=== PATIENT | female | born 1990 | race Caucasian/White ===

== ENCOUNTER 2016-10-07 16:35 | Inpatient (IN) | payer BC ==
[~2016-10-07] VITALS: Ht 175.3 cm; Wt 88.0 kg
--- NOTE | ~2016-10-07 | DS ---
Unit #: [id number] #: [id number] Patient: CARMELA HENDERSON [id number] [facility] [address] [place] [address] [id number] I MR#: [id number] NAME: CARMELA HENDERSON ROOM: [facility] Age: 25 Sex: F Admission Date: 10/07/2016 : 1990 Discharge Date: 10/12/2016 Attending Physician: Jamie Vasquez M.D. Primary Care Physician: Primary Care Physician No DISCHARGE SUMMARY IDENTIFYING DATA Ms. Henderson is a 25-year-old single white female, who is a resident of [place], [place], and was brought to the hospital by her mother on a voluntary basis. DISCHARGE DIAGNOSES Psychiatric: Bipolar disorder, most recent episode depressed, recurrent, moderate, without psychotic features. Medical: None. Stressors: Mild psychosocial stressors. HISTORY OF PRESENT ILLNESS Please see initial psychiatric evaluation for details. PAST PSYCHIATRIC HISTORY Please see initial psychiatric evaluation for details. PAST MEDICAL HISTORY Please see initial psychiatric evaluation for details. HOSPITAL COURSE The patient [facility] and was oriented to the hospital environment. Routine p.r.n. medications were initiated, and she was started back on her home medications and medications were adjusted and her Lamictal was maintained at 100 mg and Abilify and Celexa were increased and she was closely monitored. She was taking the medications regularly and was tolerating them fairly well and was able to show a decent and therapeutic response with improvement in depression and anxiety, and was denying any suicidal ideations, intent, or plan and as such, it was decided that she will be discharged home and will continue treatment on an outpatient basis. DISCHARGE MEDICATIONS Lamictal 100 mg a day for bipolar, Abilify 10 mg at bedtime for bipolar, Celexa 40 mg a day for depression. DISCHARGE CONDITION Stable. PROGNOSIS Fair. Dictated by... Unit #: [id number] #: [id number] Patient: CARMELA HENDERSON Jamie Vasquez M.D. IAA/modl TD: 10/12/2016 23:29 JOB #: [id number] DISCHARGE SUMMARY Page 1 of 1 X Jamie Vasquez MD DISCHARGE SUMMARY
--- NOTE | ~2016-10-07 | PN ---
Unit #: [id number] #: [id number] Patient: CARMELA HENDERSON [id number] [facility] [address] [place] [address] [id number] I MR#: [id number] NAME: CARMELA HENDERSON ROOM: P212 Age: 25 Sex: F Admission Date: 10/07/2016 : 1990 Attending Physician: Jamie Vasquez M.D. Admitting Physician: Jamie Vasquez M.D. Primary Care Physician: Primary Care Physician Nola MORAN PROGRESS NOTES DATE October 10, 2016 DISCUSSION Ms. Henderson is a 25-year-old white female, with mood disorder, who was seen today and chart was reviewed and the case was discussed with the staff. She has been anxious, withdrawn, depressed, and rather seclusive to herself. Meanwhile, she has been cooperative with the treatment recommendations and has been taking the medications and tolerating them fairly well with no reported side effects. MENTAL STATUS EXAMINATION Young white female, who was casually dressed with fair personal hygiene and appears to be in no acute distress or discomfort. The patient was awake and alert with impaired attention and concentration. Her mood was anxious with a congruent affect. The patient denies any suicidal or homicidal ideations. Her insight and judgment remain slightly impaired. TREATMENT PLAN 1. We will continue her on her current medications and treatment protocol, and will monitor her response to the medications, and make further adjustments as needed. 2. We will continue to followup. Dictated by... Loyda Decker/ben TD: 10/12/2016 10:55 JOB #: [id number] Unit #: [id number] #: [id number] Patient: CARMELA HENDERSON PROGRESS NOTES Page 1 of 1 X Jamie Vasquez MD PROGRESS NOTE
--- NOTE | ~2016-10-07 | PA ---
Unit #: [id number] #: [id number] Patient: CARMELA HENDERSON [id number] [facility] [address] [place] [address] [id number] I MR#: [id number] NAME: CARMELA HENDERSON ROOM: P201 Age: 25 Sex: F Admission Date: 10/07/2016 : 1990 Date of Assessment: 10/08/2016 Attending Physician: Jamie Vasquez M.D. Admitting Physician: Jamie Vasquez M.D. Primary Care Physician: Primary Care Physician No PSYCHIATRIC ASSESSMENT DATE OF SERVICE 10/08/2016. IDENTIFYING DATA Ms. Henderson is a 25-year-old single white female, who is a resident of [place], [place], and was brought to the hospital by her mother on a voluntary basis. CHIEF COMPLAINT "Suicidal ideations and substance abuse." HISTORY OF PRESENT ILLNESS Ms. Henderson is a 25-year-old white female, who was brought to the hospital and reported having suicidal ideations as she stated "suicidal thoughts and substance abuse. Earlier today, I was having suicidal thoughts. My boyfriend has a gun. I have been feeling that way for a month and a therapist is going to call my boyfriend, tell him to unloaded, put it in a safe." The patient reports that she had an appointment today with a therapist and she stated "she brought me here." The patient reports that she has been employed part-time and therefore the past week, she has not been able to show up to work and reports that she attended five years of college and "I don't think I am well enough to attend classes." She reports she lives alone in apartment. "I'm not renewing my leaves and have to move out by the . I was planning on moving in with my boyfriend, but I know he is all up in, because he was upset that here today for an assessment." The patient does endorse significant depression, anxiety, feelings of hopelessness and helplessness, and suicidal ideations with intent or plan. SUBSTANCE ABUSE HISTORY The patient reports history of alcohol, cannabis, cocaine, and acid abuse in the past and reports that she currently has been smoking marijuana. Denies any other regular drug abuse. PAST PSYCHIATRIC HISTORY The patient has a history of multiple inpatient psychiatric hospitalizations as she has been to [facility], [facility], and at [facility] and has had outpatient treatment as well. Review of the medical records indicate that she has been diagnosed and treated for bipolar disorder and supposed to be on a combination of Abilify, Lamictal, and Celexa, but has not been able to show a therapeutic response to medications. Unit #: [id number] #: [id number] Patient: CARMELA HENDERSON PAST MEDICAL HISTORY The patient's medical history is insignificant. ALLERGIES No known medication allergies. PERSONAL AND SOCIAL HISTORY A 25-year-old white female, who reports that she is single, unemployed, and lives alone and has poor social support system. MENTAL STATUS EXAMINATION Young white female, who was casually dressed with fair personal hygiene, appears to be in no acute distress or discomfort. She was awake and alert on interaction with intact orientation to time, place, and person. Her mood was anxious and depressed with a congruent affect. Her speech was slow and restricted in content. She reports having suicidal ideations, but denies any homicidal ideations, and also denies any auditory or visual hallucinations. Her insight and judgment remain significantly impaired. DIAGNOSTIC IMPRESSION Psychiatric: Bipolar disorder, most recent episode depressed, recurrent, moderate, without psychotic features. Medical: None. Stressors: Moderate psychosocial stressors. TREATMENT PLAN 1. The patient has presented with history of mood disorder, and has been decompensating and will need inpatient hospitalization for safety and stabilization. We will start her back on her home medications. We will adjust the medications and monitor response. 2. Supportive therapy was provided to the patient. 3. Safe, structured, and nourishing environment will be provided. ESTIMATED LENGTH OF STAY 5 to 7 days. ABILITY TO HELP SELF Limited. WILLINGNESS TO HELP SELF The patient appears to be willing to help self. STRENGTHS 1. Communicative. 2. Cooperative. PROBLEMS 1. Chronic dysphoric symptoms. 2. Poor social support system. DISCHARGE CRITERIA This will be contingent upon the patient's ability to show resolution of her depression and anxiety and her ability to stay safe to herself, particularly after discharge from the hospital. Dictated by... Jamie Vasquez M.D. Unit #: [id number] #: [id number] Patient: CARMELA HENDERSON IAA/modl TD: 10/08/2016 08:05 JOB #: [id number] PSYCHIATRIC ASSESSMENT Page 1 of 1 X Jamie Vasquez MD PSYCHIATRIC ASSESSMENT
--- NOTE | ~2016-10-07 | PN ---
Unit #: [id number] #: [id number] Patient: CARMELA HENDERSON [id number] [facility] [address] [place] [address] [id number] MR#: [id number] NAME: CARMELA HENDERSON ROOM: P212 Age: 25 Sex: F Admission Date: 10/07/2016 : 1990 Attending Physician: Jamie Vasquez M.D. Admitting Physician: Jamie Vasquez M.D. Primary Care Physician: Primary Care Physician Nola MORAN PROGRESS NOTES DATE 10/11/2016 DISCUSSION Ms. Henderson is a 25-year-old white female who was seen today and chart was reviewed and case was discussed with the staff. She has been doing fairly well with no agitation, irritability and has been cooperative with treatment recommendations as she has been taking the medications and tolerating them fairly well with no reported side effects. MENTAL STATUS EXAMINATION Young white female who was casually dressed with fair personal hygiene, appears to be in no acute distress or discomfort. She was awake and alert with impaired attention and concentration. Her mood was anxious and depressed with congruent affect. She denies any suicidal or homicidal ideations. Her insight and judgement remains slightly impaired. TREATMENT PLAN 1. We will continue her on her current treatment protocol. We will monitor her response to the medication and make further adjustments as needed. 2. We will continue to follow up. Dictated by... Loyda Decker/saji TD: 10/13/2016 04:19 JOB #: [id number] Unit #: [id number] #: [id number] Patient: CARMELA HENDERSON PROGRESS NOTES Page 1 of 1 X Jamie Vasquez MD PROGRESS NOTE
--- NOTE | ~2016-10-07 | HP ---
Unit #: [id number] #: [id number] Patient: CARMELA HENDERSON [id number] [place] [address] [id number] MR#: [id number] NAME: CARMELA HENDERSON ROOM: P201 Age: 25 Sex: F Admission Date: 10/07/2016 : 1990 Attending Physician: Jamie Vasquez M.D. Admitting Physician: Jamie Vasquez M.D. Primary Care Physician: Primary Care Physician No HISTORY AND PHYSICAL HISTORY OF PRESENT ILLNESS Carmela is a 25-year-old female admitted on 10/07/[address] [place] [address] for suicidal ideation. PAST MEDICAL HISTORY None. PAST SURGICAL HISTORY Right elbow surgical repair after a fracture. ALLERGIES No known drug allergies. SOCIAL HISTORY Smokes 1 pack of cigarettes daily. Binge social alcohol use. Reports occasional marijuana use. She is currently single and living alone. FAMILY HISTORY Noncontributory. REVIEW OF SYSTEMS CONSTITUTIONAL: No fever or chills. HEENT: Denies any sore throat, ear pain or runny nose. CARDIOVASCULAR: Denies chest pain, irregular heart rhythm or palpitations. CHEST: Denies shortness of breath or cough. No hemoptysis. GASTROINTESTINAL: Denies nausea, vomiting, diarrhea or chronic constipation. ENDOCRINE: Denies history of increased thirst or urination. No recent significant weight loss or gain. GENITOURINARY: Denies dysuria, frequency, or hematuria. SKIN: Denies any rashes. HEMATOLOGIC: Denies history of increased bleeding or bruising. MUSCULOSKELETAL: Denies any hot, swollen joints. No generalized muscle pain. NEUROLOGIC: Denies problems with vision or speech. No frequent, severe headaches. No numbness, tingling or weakness in any extremities. Denies loss of bladder or bowel control. CURRENT MEDICATIONS 1. Lamictal. 2. Abilify. 3. Celexa. Unit #: [id number] #: [id number] Patient: CARMELA HENDERSON PHYSICAL EXAMINATION GENERAL: Alert, oriented, in no acute distress. VITAL SIGNS: Blood pressure 125/88, heart rate 69, respirations 20, temperature 98.1. HEIGHT: 5 feet 9. WEIGHT: 194 pounds. SKIN: Warm and dry without rash or lesion. HEENT: Normocephalic. TMs not viewed. Oral and nasal passages clear. Conjunctivae clear. PERRLA. EOMs intact. NECK: Supple without lymphadenopathy or thyromegaly. HEART: Regular rate and rhythm without murmur. LUNGS: Clear. ABDOMEN: Soft, nontender, without masses or hepatosplenomegaly. : Not done. EXTREMITIES: No evidence of cyanosis, clubbing or edema. Moves all without focal deficit. NEUROLOGICAL: Grossly within normal limits. Cranial Nerves: II: Visual lawson are intact. III, IV AND : Extraocular movements are intact. Pupils are equal, round and reactive to light. V: Facial sensation is grossly normal. VII: Facial movements and expression are normal. VIII: Auditory acuity grossly intact. IX, X: Uvula is midline. Phonation is normal. XI: Patient shrugs shoulders and turns head normally. XII: Tongue protrudes in the midline. Sensory and Motor Function: Sensory and motor sensation is grossly normal. Motor: moves all extremities well. Coordination: Gait is normal. Deep Tendon Reflexes: Intact. IMPRESSION Psychiatric admission. RECOMMENDATIONS PSYCHIATRIC: Per psychiatrist. MEDICAL: No contraindication to participate in facility's activities. MEDICAL PROGNOSIS Good. MEDICAL CONDITION Stable. Dictated by... Evelina Norman/dianna TD: 10/08/2016 22:39 JOB #: [id number] Unit #: [id number] #: [id number] Patient: CARMELA HENDERSON HISTORY AND PHYSICAL Page 1 of 1 X SEGUNDO MORFIN APRN X HISTORY AND PHYSICAL
--- NOTE | ~2016-10-07 | PN ---
Unit #: [id number] #: [id number] Patient: CARMELA HENDERSON [id number] [facility] [address] [place] [address] [id number] MR#: [id number] NAME: CARMELA HENDERSON ROOM: P201 Age: 25 Sex: F Admission Date: 10/07/2016 : 1990 Attending Physician: Jamie Vasquez M.D. Admitting Physician: Jamie Vasquez M.D. Primary Care Physician: Primary Care Physician Nola RUBIO NOTES DATE OF SERVICE: 10/09/2016 SUBJECTIVE Ms. Henderson is a 25-year-old white female, who was seen today and chart was reviewed and the case was discussed with the staff. She remains anxious, withdrawn, depressed, and rather seclusive to herself. Meanwhile, she has been cooperative with the treatment recommendations and has been taking the medications and tolerating them fairly well with no reported side effects. MENTAL STATUS EXAMINATION Young white female, who was casually dressed with a fair personal hygiene, appears to be in no acute distress or discomfort. She was awake and alert on interaction with intact orientation. Her mood was anxious and depressed with a congruent affect. Her speech was slow and restricted in content. The patient reports having suicidal ideations, but denies any homicidal ideations. Her insight and judgment remain slightly impaired. TREATMENT PLAN 1. We will continue her on her current medications and treatment protocol. We will monitor her response to the medications and make further adjustments as needed. 2. We will continue to follow up. Dictated by... Loyda Decker/lynette TD: 10/09/2016 13:57 JOB #: [id number] Unit #: [id number] #: [id number] Patient: CARMELA HENDERSON PROGRESS NOTES Page 1 of 1 X Jamie Vasquez MD PROGRESS NOTE
[2016-10-08 09:45] LABS: BASOPHIL# 0.1 X10e3 (0-0.3); BASOPHIL% 0.9 % (0-2.5); EOSINOPHIL# 0.5 X10e3 (0-0.7); EOSINOPHIL% 7.2 % (0.0-7.0); HEMATOCRIT 38.6 % (35.0-45.0); HEMOGLOBIN 12.7 gm/dL (12.0-16.0); LYMPHOCYTE# 1.4 X10e3 (1.0-3.5); LYMPHOCYTE% 21.6 % (17.0-45.0); MEAN CELL VOLUME 93.8 FL (83-96); MEAN CORPUSCULAR HEMOGLOBIN 30.9 PG (28-34); MEAN CORPUSCULAR HGB CONC 32.9 g/dL (30-36); MEAN PLATELET VOLUME 8.6 FL (6.5-11.5); MONOCYTE# 0.6 X10e3 (0-1.0); NEUTROPHIL% 61.3 % (40-75); PLATELET COUNT 218 X10e3 (140-420); RED BLOOD COUNT 4.11 X10e (3.90-5.30); RED CELL DISTRIBUTION WIDTH 12.6 % (11.0-15.5); WHITE BLOOD COUNT 6.5 X10e3 (4.0-10.5)
[2016-10-08 09:56] LABS: DIFF IND NO
[2016-10-08 10:16] LABS: BILIRUBIN,TOTAL 0.9 mg/dL (0.2-2.0); CALCIUM SERUM 9.3 mg/dL (8.4-10.2); CREATININE SERUM 0.8 mg/dL (0.6-1.4); POTASSIUM 4.5 mmol/L (3.5-5.1); PROTEIN TOTAL SERUM 6.7 g/dL (6.0-8.3)
[2016-10-09 09:59] LABS: URINE APPEARANCE CLEAR; URINE BILIRUBIN NEG (NEG); URINE BLOOD TRACE (NEG); URINE COLOR YELLOW; URINE GLUCOSE NEG (NEG); URINE KETONE NEG (NEG); URINE LEUKOCYTE ESTERASE NEG (NEG); URINE NITRATE NEG (NEG); URINE PH 6.5 (5-8); URINE PROTEIN NEG (NEG); URINE SPECIFIC GRAVITY 1.022 (1.003-1.035)
[2016-10-09 10:08] LABS: URINE BACTERIA AUWI 1+ (NEGATIVE); URINE SQUAMOUS EPITHELIAL CELL OCC /[HPF]
[2016-10-09 11:05] LABS: AMPHETAMINE NEG (NEG); BARBITURATES NEG (NEG); BENZODIAZEPINES NEG (NEG); COCAINE NEG (NEG); MARIJUANA POS (NEG); OPIATES NEG (NEG); TRICYCLIC ANTIDEPRESSANTS NEG (NEG); U METHADONE NEG (NEG)
== END 2016-10-12 09:35 | DRG 885 ==
LOC: P2S 19:25
PROVIDERS: Psychiatry & Neurology Psychiatry
DX: F33.1 Major depressive disorder, recurrent, moderate (principal); R45.851 Suicidal ideations; F41.9 Anxiety disorder, unspecified; F17.210 Nicotine dependence, cigarettes, uncomplicated; Z56.0 Unemployment, unspecified
CPT/HCPCS: 80053; 80307; 81003; 84703; 85025